=== PATIENT | female | born 1955 | race Caucasian/White ===

== ENCOUNTER 2017-07-24 17:22 | Emergency (ER) | payer BC ==
[2017-07-24 17:30] VITALS: BP 148/71
[2017-07-24] MEDS ORDERED: Acetaminophen TAB* 325 MG PO ONE (18:10)
--- NOTE | 2017-07-24 18:49 | ED ---
Upper Extremity Pain - HPI Summary HPI Summary: 62F presents with right humerus pain. [place] going [place] a hill and got her arm stuck in a tree. She felt a snap. She denies any numbness or tingling. She has full ROM of her hand. She has abrasions to knee but was able to ambulate and denies any pain there. She states her arm feels different and there is a lot of pressure there. She has not taken anything for pain. 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 She is right handed. - History of Current Complaint Chief Complaint: EDExtremityUpper Stated Complaint: RT ARM PAIN/POSS BREAK Time Seen by Provider: 07/24/17 18:07 - Allergies/Home Medications Allergies/Adverse Reactions: Allergies Allergy/AdvReac Type Severity Reaction Status Date / Time No Known Allergies Allergy Verified 07/24/17 17:30 PMH/Surg Hx/FS Hx/Imm Hx Endocrine/Hematology History: Reports: Hx Diabetes Denies: Hx Anticoagulant Therapy Cardiovascular History: Reports: Hx Hypertension Infectious Disease History: No Infectious Disease History: Denies: Traveled Outside the [place] in Last 30 Days - Family History Known Family History: Positive: Hypertension - Social History Alcohol Use: Weekly Substance Use Type: Reports: None Smoking Status (MU): Never Smoked Tobacco Review of Systems Negative: Fever Negative: Chest Pain Negative: Shortness Of Breath Positive: Myalgia - right arm pain All Other Systems Reviewed And Are Negative: Yes Physical Exam Triage Information Reviewed: Yes Vital Signs On Initial Exam: Initial Vitals Temp Pulse Resp BP Pulse Ox 97.4 F 85 20 148/71 96 07/24/17 17:27 07/24/17 17:27 07/24/17 17:27 07/24/17 17:27 07/24/17 17:27 Vital Signs Reviewed: Yes Appearance: Positive: Well-Appearing Skin: Positive: Warm, Dry Head/Face: Positive: Normal Head/Face Inspection Eyes: Positive: Normal, Conjunctiva Clear Respiratory/Lung Sounds: Positive: Clear to Auscultation, Breath Sounds Present Cardiovascular: Positive: Normal, RRR Musculoskeletal: Positive: Strength/ROM Intact - wrist and hand right, Limited @ - shoulder and elbow due to pain, Edema Right - humerus, Other - good pulses, capillary refill<2 secs, sensation grossly intact, tender over right humerus, no tenderness to elbow, Procedures - Splinting Location: humerus Hand-Made Type: fiberglass Splint: copulation Pre-Proc Neuro Vasc Exam: normal Post-Proc Neuro Vasc Exam: normal Diagnostics - Vital Signs Vital Signs Temp Pulse Resp BP Pulse Ox 07/24/17 17:27 97.4 F 85 20 148/71 96 - Laboratory Lab Statement: Any lab studies that have been ordered have been reviewed, and results considered in the medical decision making process. - Radiology humerus Xray Interpretation: Positive (See Comments) - IMPRESSION: Comminuted fracture proximal to mid shaft of the right humerus. Radiology Interpretation Completed By: Radiologist Course/Dx - Course Course Of Treatment: 62F presents with right humerus pain. [place] going [place] a hill and got her arm stuck in a tree. She felt a snap. She denies any numbness or tingling. She has full ROM of her hand. She has abrasions to knee but was able to ambulate and denies any pain there. She states her arm feels different and there is a lot of pressure there. on exam neurovascular intact, tender over right humerus. xray shows humerus fracture. I assisted dr de leon in placing a copulation splint. told to follow up with ortho. patient understands and agrees with plan - Diagnoses Differential Diagnosis/HQI/PQRI: Positive: Fracture (Closed), Strain, Sprain Provider Diagnoses: Right humeral fracture Discharge - Discharge Plan Condition: Good Disposition: HOME Patient Education Materials: Proximal Humerus Fracture (ED) Referrals: Non Staff,Doctor [Primary Care Provider] - Rigo Noriega MD [Medical Doctor] - Additional Instructions: Keep elbow in sling Keep splint on area and keep dry Call ortho office tomorrow to set up appointment for follow up Use Tylenol or ibuprofen for pain every 6 hours and use narcotic for breakthrough pain Ice Return to ED if develop numbness or tingling or any new or worsening symptoms
--- NOTE | 2017-07-24 19:14 | RAD ---
Indication: Fall, right arm injury 3 views of the right humerus demonstrates fracture of the midshaft of the proximal diaphysis of the humerus with comminuted fracture. Slight medial angulation of the distal fracture fragment is noted. IMPRESSION: Comminuted fracture proximal to mid shaft of the right humerus.
--- NOTE | 2017-07-24 19:18 | RAD ---
Indication: Right Elbow injury. 2 views of the right elbow demonstrates no fracture of the elbow. Comminuted fracture of the proximal humerus is noted. IMPRESSION: Comminuted fracture midshaft humerus. Elbow is otherwise unremarkable.
--- NOTE | 2017-07-24 23:52 | CONS ---
CC: PCP CONSULTATION REPORT: DATE OF CONSULTATION: 07/24/17 CHIEF COMPLAINT: Right humerus pain. HISTORY OF PRESENT ILLNESS: Briefly, Camilla Chowdhury is a 62-year-old right-hand dominant female who [place] going [place] a hill and got her arm struck in a tree . She felt a snap. She denied any numbness or tingling at that time, but now has paresthesias in h er right forearm. She had abrasions to bilateral knees, but was able to ambulate. She found some o ther people who were hiking, who are also family practice doctors, who helped to get her down from t he hiking place and get help. She has had no previous history of right shoulder pain. PAST MEDICAL HISTORY: Significant for high blood pressure. MEDICATIONS: Include amlodipine 10 mg orally. ALLERGIES: None. SOCIAL HISTORY: She is a . She is right hand dominant. 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 She denies tobacco. She denies any recreational drugs. Alcohol is on occasion. FAMILY HISTORY: Significant for high blood pressure. REVIEW OF SYSTEMS: A 14-point review of systems was reviewed with the patient. It is significant f or abrasions to her knees as well as the right arm pain. Otherwise, remainder of systems is negative . PHYSICAL EXAMINATION: Vital Signs: Temperature of 97.4, pulse rate 85, oxygen 96% on room air, res piratory rate 20, and blood pressure 147/71. She is in no acute distress. She is well developed, w ell nourished. She is alert and oriented x3. She has pleasant mood and normal affect. She has daniella sions to bilateral knees. She is uncomfortable on the stretcher. She had an obvious deformity of he r arms. Examination of the right upper extremity demonstrates the skin is intact. There is an obvio us deformity. She is tender to palpation appropriately. She is nontender about the elbow, wrist, o r hand. She is sensate to light touch about the first dorsal webspace, index, long finger, and smal l finger. She has 2+ radial pulse. She is able to perform thumbs up appropriately, can flex, extend and cross finger, abduct her digit. She can extend her wrist. Chest: She is respiring easily wit hout any wheezes or rhonchi. Her abdomen is soft and nontender. Heart: Regular rate and rhythm. IMAGING: X-rays reviewed demonstrates a midshaft spiral fracture of the humerus with a large butter fly fragment with shortening. ASSESSMENT AND PLAN: She has a right proximal humerus shaft fracture with butterfly fragment. This would be amenable to surgical fixation due to her right hand being dominant, living by herself and the fact that this can be shortened and rotated. We talked about options. At this point, it is no t an acute emergency and we do not have the appropriate plate, so I would recommend putting her in a coaptation splint. I personally placed the coaptation splint on her right upper extremity, which i s made out of plaster, which immediately helped her feel comfortable and have some stability to the arm. We talked about operative treatment. As she is from [place], and therefore I recommended my co bobo, Dr. Waldo Kay in [place], who has experience with this. We talked about risks and nell efits of surgical versus nonoperative treatment. I do think that this is in her best interest. I a m also happy to see her back if she needs any assistance. She verbalized understanding. [id number]/[facility] #: [id number]
== END 2017-07-24 20:25 | disposition home or self-care (01) ==
LOC: ED 17:22
DX: S42.301A Unspecified fracture of shaft of humerus, right arm, initial encounter for closed fracture (principal); W19.XXXA Unspecified fall, initial encounter; Y93.9 Activity, unspecified; Y92.9 Unspecified place or not applicable
CPT/HCPCS: 99282; A9270-GY